=== PATIENT | female | born 1950 | race Asian ===

== ENCOUNTER 2017-05-08 17:35 | Emergency (ER) | payer MEDICARE, OTHER ==
[~2017-05-08] VITALS: Ht 157.5 cm; Wt 54.5 kg
[2017-05-08 17:37] VITALS: BP 149/79
[2017-05-08] MEDS ORDERED: LIDOCAINE 1%, 20ML INFIL ONE (18:00)
[2017-05-08] MEDS ORDERED: LIDOCAINE 1%, 20ML ONE (18:04)
== END 2017-05-08 18:56 | disposition home or self-care (01) ==
LOC: ED 18:05
DX: L02.415 Cutaneous abscess of right lower limb (principal)
CPT/HCPCS: 10060; 99283

== ENCOUNTER 2017-05-10 10:48 | Emergency (ER) | payer MEDICARE, OTHER ==
[~2017-05-10] VITALS: Ht 154.9 cm; Wt 54.1 kg
[2017-05-10] MEDS ORDERED: DILT120T3 PO (11:32)
[2017-05-10 12:24] VITALS: BP 122/63
== END 2017-05-10 12:26 | disposition home or self-care (01) ==
LOC: ED 11:50
DX: L02.415 Cutaneous abscess of right lower limb (principal); I10 Essential (primary) hypertension
CPT/HCPCS: 36415; 84484; 93005; 99285

== ENCOUNTER → 2017-10-25 | Outpatient (CLI) | payer MEDICARE, OTHER ==
[~2017-10-25] MED LIST: DILT120T3 PO
== END ==
LOC: CVU 12:25
PROVIDERS: ATTEND Internal Medicine Cardiovascular Disease
DX: I65.23 Occlusion and stenosis of bilateral carotid arteries (principal); I10 Essential (primary) hypertension; E78.5 Hyperlipidemia, unspecified
CPT/HCPCS: 93880

== ENCOUNTER 2019-01-04 23:09 | Emergency (ER) | payer MEDICARE ==
[~2019-01-04] VITALS: Ht 154.9 cm; Wt 54.8 kg
[2019-01-05 02:07] VITALS: BP 127/88
== END 2019-01-05 02:11 | disposition home or self-care (01) ==
LOC: ED 01-05 01:40
DX: S20.211A Contusion of right front wall of thorax, initial encounter (principal); R10.11 Right upper quadrant pain; I10 Essential (primary) hypertension; E78.5 Hyperlipidemia, unspecified; W18.30XA Fall on same level, unspecified, initial encounter; Y93.89 Activity, other specified; Y92.009 Unspecified place in unspecified non-institutional (private) residence as the place of occurrence of the external cause; Y99.8 Other external cause status
CPT/HCPCS: 36415; 71045; 74177; 80053; 85025; 99284; Q9967

== ENCOUNTER 2020-07-15 02:24 | Emergency (ER) | payer MEDICARE ==
[~2020-07-15] VITALS: Ht 154.9 cm; Wt 52.7 kg
[2020-07-15 02:34] VITALS: BP 162/81
== END 2020-07-15 04:17 | disposition home or self-care (01) ==
LOC: ED 03:21
DX: R04.0 Epistaxis (principal); I10 Essential (primary) hypertension; E78.5 Hyperlipidemia, unspecified
CPT/HCPCS: 99282